=== PATIENT | female | born 1990 | race Caucasian/White ===

== ENCOUNTER 2019-11-11 12:36 | Outpatient (CLI) | payer BC, SELFPAY ==
--- NOTE | 2019-11-11 13:19 | ECHO_ITS ---
Patient Info Name: Taylor Mancilla Age: 29 years : 1990 Gender: Female Ht: 63 in Wt: 330 lbs BSA: 2.68 m2 HR: 71 bpm BP: 133 / 85 mmHg Heart Rhythm: Sinus Rhythm Technical Quality: Good Exam Date: 11/11/2019 1:32 PM Exam Location: [facility] Pulmonary Patient Status: Outpatient Admit Date: 11/11/2019 Staff Ordering Physician: Kerrie Fuentes NP Computer Aided Design Technician: Janina Terrazas RDCS Attending Provider: Kerrie Fuentes NP Referring Physician: Gina MACEDO; Exam Type: CA echo doppler color flow Study Info Complete two-dimensional, color flow and Doppler transthoracic echocardiogram is performed. Summary 1. Left ventricular chamber dimension is normal. 2. Left ventricular systolic function is normal, estimated at 60-65%. 3. The left ventricular diastolic function is normal. 4. E/e' 10 is mildly elevated. 5. There is trace mitral valve regurgitation. 6. There is trace tricuspid valve regurgitation. 7. No pulmonary hypertension, estimated pulmonary arterial systolic pressure is 28 mmHg. 8. There is trace pulmonic regurgitation. Left Ventricle E/e' 10 is mildly elevated. Left ventricular chamber dimension is normal. Left ventricular systolic function is normal, estimated at 60-65%. The left ventricular diastolic function is normal. Right Ventricle Right ventricular chamber dimension is normal. Right ventricular systolic function is normal. Left Atria Left atrial chamber dimension is normal. Right Atria Right atrial chamber dimension is normal. Aortic Valve The aortic valve is trileaflet. There is no aortic valve stenosis. There is no aortic valve regurgitation. Pulmonic Valve There is trace pulmonic regurgitation. Mitral Valve There is no mitral valve stenosis. There is trace mitral valve regurgitation. Tricuspid Valve There is trace tricuspid valve regurgitation. No pulmonary hypertension, estimated pulmonary arterial systolic pressure is 28 mmHg. Pericardium/Pleural There is no pericardial effusion. Inferior Vena Cava Normal inferior vena cava with >50% collapse upon inspiration consistent with normal right atrial pressure, 5 mmHg. Aorta The aortic root size at the sinus of Valsalva is normal. Left Ventricular Outflow Tract Name Value Normal LVOT 2D LVOT Diameter 2.1 cm LVOT Doppler LVOT Peak Gradient 4 mmHg LVOT Mean Gradient 2 mmHg LVOT VTI 23 cm LVOT VTI/AV VTI Ratio 0.8 LVOT Stroke Volume 75 ml LVOT CO 13.6 l/min LVOT CI 5.1 l/min/m2 Pulmonic Valve Name Value Normal PV Doppler PV Peak Gradient 5 mmHg Mitral Valve
== END 2019-11-11 12:37 | disposition home or self-care (01) ==
PROVIDERS: PCP Internal Medicine; Visit Provider Nurse Practitioner
DX: R60.9 Edema, unspecified (principal)
CPT/HCPCS: 93306

== ENCOUNTER 2021-02-15 11:59 | Outpatient (CLI) | payer BC, SELFPAY ==
[2021-02-15 12:55] LABS: Hematocrit 35.7 % (37.0-47.0); Hemoglobin 11.6 g/dL (12.0-15.0); Mean Corpuscular HGB Conc 32.5 g/dl (32-36); Mean Corpuscular Hemoglobin 30.4 pg (26-34); Mean Corpuscular Volume 93.5 fl (80-100); Mean Platelet Volume 10.7 fl (7.4-10.4); Platelet Count Result 359 k/mm3 (150-375); Red Blood Count 3.82 M/mm3 (4.2-5.4); Red Cell Distribution Width 13.3 % (11.5-14.5)
== END 2021-02-15 12:00 | disposition home or self-care (01) ==
LOC: ANHLAB 12:02
PROVIDERS: PCP Internal Medicine; Visit Provider Obstetrics & Gynecology
DX: N92.6 Irregular menstruation, unspecified (principal)
CPT/HCPCS: 36415; 84443; 85027

== ENCOUNTER 2021-06-29 09:43 | Outpatient (CLI) | payer BC, SELFPAY ==
[2021-06-29 10:07] LABS: Basophils Absolute Auto 0.1 K/mm3 (0.0-0.1); Basophils Percent Auto 0.7 % (0.2-1.2); Eosinophils Absolute Auto 0.3 K/mm3 (0-0.3); Eosinophils Percent Auto 2.5 % (0-4.4); Hematocrit 36.8 % (37.0-47.0); Hemoglobin 12.1 g/dL (12.0-15.0); Immature Granulocyte Absolute 0.04 K/mm3 (0.00-0.031); Immature Granulocyte Percent A 0.4 % (0-0.5); Lymphocytes Absolute Auto 3.26 K/mm3 (0.9-3.2); Lymphocytes Percent Auto 32.6 % (18.3-44.2); Mean Corpuscular HGB Conc 32.9 g/dl (32-36); Mean Corpuscular Volume 91.1 fl (80-100); Mean Platelet Volume 10.6 fl (7.4-10.4); Monocytes Absolute Auto 0.8 K/mm3 (0.1-0.6); Monocytes Percent Auto 7.5 % (2.6-8.5); Neutrophils Absolute Auto 5.6 K/mm3 (1.3-6.7); Neutrophils Percent Auto 56.3 % (45.5-73.1); Platelet Count Result 301 k/mm3 (150-375); Red Blood Count 4.04 M/mm3 (4.2-5.4); Red Cell Distribution Width 14.6 % (11.5-14.5)
--- NOTE | 2021-06-29 10:07 | ECG_ITS ---
Measurements Intervals [place] Rate: 74 P: 6 MN: 154 QRS: 55 QRSD: 87 T: 15 QT: 366 QTc: 408 Interpretive Statements SINUS RHYTHM NORMAL ECG Electronically Signed On 06-29-2021 11:57:09 PATROL LADY by Diego Fernandez D.O.
[2021-06-29 10:44] LABS: Alanine Aminotransferase 24 U/L (4-35); Albumin Level 4.2 g/dL (3.5-5.1); Alkaline Phosphatase 88 U/L (38-126); Anion Gap 5 mmol/L (8-16); Aspartate Amino Transferase 26 U/L (14-36); Bilirubin,Total 0.3 mg/dL (0.2-1.3); Blood Urea Nitrogen 14 mg/dL (7-17); Calcium 9.3 mg/dL (8.4-10.2); Carbon Dioxide 27 mmol/L (22-30); Chloride 106 mmol/L (98-107); Cholesterol 178 mg/dL (0-200); Estimated Glomerular Filt Rate > 60; Glucose 108 mg/dL (65-110); HDL Direct 40 mg/dL; Potassium 4.7 mmol/L (3.4-5.0); Sodium 138 mmol/L (137-145); Triglycerides 195 mg/dL (<150)
[2021-06-29 10:55] LABS: LDL Cholesterol Direct 115 mg/dL
== END 2021-06-29 09:44 | disposition home or self-care (01) ==
LOC: ANHLAB 09:46
PROVIDERS: PCP Internal Medicine; Visit Provider Nurse Practitioner
DX: I10 Essential (primary) hypertension (principal); Z01.810 Encounter for preprocedural cardiovascular examination
CPT/HCPCS: 36415; 80053; 80061; 85025; 93005

== ENCOUNTER → 2022-06-12 14:28 | Outpatient (CLI) | payer BC, SELFPAY ==
--- NOTE | ~2022-06-12 | XR_ITS ---
EXAMINATION: XR thoracic spine 3V DATE: 06/12/2022 14:42 INDICATION: Thoracic back pain TECHNIQUE: AP, lateral and lateral swimmer's views of the thoracic spine were obtained. COMPARISON: None. FINDINGS: No fracture, dislocation, or subluxation. The vertebral body heights, alignment, and interv ertebral disc spaces are normal. The paravertebral soft tissues are unremarkable. IMPRESSION: 1. No acute osseous abnormality. Reviewed, dictated and finalized at location L. PER MAKER
== END ==
PROVIDERS: PCP Nurse Practitioner; Visit Provider Nurse Practitioner
DX: M54.6 Pain in thoracic spine (principal)
CPT/HCPCS: 72072

== ENCOUNTER 2023-01-01 08:39 | Outpatient (CLI) | payer BC, SELFPAY ==
--- NOTE | 2023-01-02 11:03 | WPDNEUROLOGY ---
Neurology EEG Report General Information Date of Study: 01/01/23 TEST Routine EEG DIAGNOSIS Syncope and collapse CONDITION OF RECORDING Awake, drowsy EEG NUMBER [id number] CLINICAL HISTORY Patient states she has had three episodes of heart racing, sweating, dizziness, than losing consciousness for a few seconds. She has a history of gastric bypass and has lost 180 lbs in the past year. EEG DESCRIPTION During the awake state with eyes closed the background consists of 10 Hz posterior dominant rhythm which attenuates appropriately with eye opening. The recording is continuous. There is a well developed anterior-posterior gradient. No significant asymmetries of background activities are noted. With drowsiness there is waxing and waning of the dominant rhythm with eventual replacement by a mixture of beta, alpha, and theta activity. Patient does not enter stage II sleep. There are no epileptiform discharges or seizures during this recording. Photic stimulation did not elicit any abnormal photoparoxysmal response. IMPRESSION This is a normal routine EEG recorded in awake and drowsy states. There are no electrographic seizures identified, nor are there any epileptiform discharges. Please note that a normal EEG cannot exclude a seizure disorder. Clinical correlation is recommended.
--- NOTE | 2023-01-05 16:54 | WPDHOLTEREM ---
Holter/Event Monitor Holter/Event Monitor Date of procedure: 01/01/23 Holter/Event Procedure: 48 Hr Holter Monitor Indications: Syncope Conclusion: 1. 48 hour holter monitor on 01/01/23. 2. Underlying rhythm is sinus rhythm. HR range 50-143 bpm; average HR 78 bpm. HR at 143 bpm is at 16:52. 3. There are 2 premature supraventricular complexes. No supraventricular tachycardia. 4. There are 3,381 premature ventricular complexes and 35 ventricular trigeminy. No ventricular tachycardia. 5. No sinoatrial or atrioventricular blocks. No significant pauses greater than 2 seconds. 6. Patient reports symptoms of racing heart, pounding heart, dizziness which demonstrate sinus rhythm, HR range 72-101 bpm and 1 PVC.
== END 2023-01-01 08:40 | disposition home or self-care (01) ==
PROVIDERS: PCP Internal Medicine; Visit Provider Internal Medicine
DX: R55 Syncope and collapse (principal)
CPT/HCPCS: 93225; 93226; 95816

== ENCOUNTER 2023-02-05 12:34 | Outpatient (CLI) | payer BC, SELFPAY ==
--- NOTE | 2023-02-05 12:47 | ECHO_ITS ---
Patient Info Name: Taylor Mancilla Age: 32 years : 1990 Gender: Female Ht: 66 in Wt: 189 lbs BSA: 2.02 m2 HR: 61 bpm BP: 111 / 82 mmHg Technical Quality: Good Exam Date: 02/05/2023 1:02 PM Exam Location: [facility] Patient Status: Outpatient Admit Date: 02/05/2023 Staff Ordering Physician: Kerrie Fuentes NP Wave Guide Assembler: Nanette Logan RDCS Attending Provider: Kerrie Fuentes NP Referring Physician: Gina MACEDO; Exam Type: CA echo doppler color flow Study Info Indications R55 - Syncope and collapse Complete two-dimensional, color flow and Doppler transthoracic echocardiogram is performed. Summary 1. Complete two-dimensional, color flow and Doppler transthoracic echocardiogram is performed. 2. Left ventricular chamber dimension is normal. 3. Left ventricular systolic function is normal, estimated at 60-65%. 4. The left ventricular diastolic function is normal. 5. E/e' 6 is not elevated. 6. Global longitudinal strain is normal at -18.8%. 7. Left atrial chamber dimension is moderately enlarged. 8. Right atrial chamber dimension is moderately enlarged. 9. There is mild mitral valve regurgitation. 10. There is mild tricuspid valve regurgitation. 11. No pulmonary hypertension, estimated pulmonary arterial systolic pressure is 28 mmHg. Left Ventricle E/e' 6 is not elevated. Global longitudinal strain is normal at -18.8%. Left ventricular chamber dimension is normal. Left ventricular systolic function is normal, estimated at 60-65%. The left ventricular diastolic function is normal. Right Ventricle Right ventricular systolic function is normal and with normal TAPSE 3.0 cm. Right ventricular chamber dimension is normal. Left Atria Left atrial chamber dimension is moderately enlarged. Right Atria Right atrial chamber dimension is moderately enlarged. Aortic Valve The aortic valve is trileaflet. There is no aortic valve stenosis. There is no aortic valve regurgitation. Pulmonic Valve There is no pulmonic regurgitation. Mitral Valve There is no mitral valve stenosis. There is mild mitral valve regurgitation. Tricuspid Valve There is mild tricuspid valve regurgitation. No pulmonary hypertension, estimated pulmonary arterial systolic pressure is 28 mmHg. Pericardium/Pleural There is no pericardial effusion. Inferior Vena Cava Normal inferior vena cava with >50% collapse upon inspiration consistent with normal right atrial pressure, 5 mmHg. Aorta The aortic root size at the sinus of Valsalva is normal. Left Ventricular Outflow Tract Name Value Normal LVOT 2D LVOT Diameter 2.0 cm LVOT Doppler LVOT Peak Gradient 4 mmHg LVOT Mean Gradient 3 mmHg LVOT VTI 22 cm LVOT VTI/AV VTI Ratio 0.8 LVOT Stroke Volume 66 ml LVOT CO 3.8 l/min LVOT CI 1.9 l/min/m2 Pulmonic Valve Name Value Normal
== END 2023-02-05 12:35 | disposition home or self-care (01) ==
PROVIDERS: PCP Internal Medicine; Visit Provider Nurse Practitioner
DX: R55 Syncope and collapse (principal)
CPT/HCPCS: 93306

== ENCOUNTER 2023-03-24 08:08 | Outpatient (CLI) | payer BC, SELFPAY ==
--- NOTE | 2023-04-12 05:20 | WPDHOMESLEEP ---
Sleep Study - Home Unattended Date of Study: 03/24/23 Ordering Provider: Diego Fernandez DO Interpreting Provider: Cheyanne Velasquez MD [place] Sleep Study Type: Watch PAT Height: 1.65 m Weight: 90.718 kg Body Mass Index: 33.3 Neck Circumference (inches): 12.5 [place]: 17 Reason for Sleep Study Hypersomnolence Sleep History Taylor Mancilla is a 33-year-old woman with a long history of snoring and excessive daytime sleepiness. She takes multiple naps in the day. She never awakens from sleep short of breath. She rarely wakes at night with heartburn, belching or coughing.??She frequently snores,rarely snores loudly enough that others complain. She constantly has trouble sleeping when she has a cold. She never wakes up gasping for breath during the night. She never has breathing problems at night observed by others. She constantly sweats excessively at night. She rarely notices her heart pounding or beating irregularly during the night. She constantly falls asleep during the day. She constantly falls asleep involuntarily, and this constantly happens while she is driving. She does not experience loss of muscle tone with strong emotion. She never feels paralyzed on waking or falling asleep. She constantly experiences vivid dreams upon waking or falling asleep. She never feels afraid of going to sleep. She frequently has nightmares. She constantly recalls her dreams. She constantly has thoughts racing through her mind. She frequently feels sad or depressed. She frequently feels anxiety. She never notices parts of her body jerk. She never kicks during the night. She occasionally feels crawling or aching feelings in her legs. She occasionally feels leg pain at night. She never has morning jaw pain, never grinds her teeth at night. She never feels bothered by pain during the day, never is awakened by pain during the night. She occasionally wakes up feeling stiff in the morning, occasionally wakes feeling sore or achy in the morning. She never awakens with pain in her neck, spine, or joints. Normal bedtime is between 10:00 p.m and 11:00 p.m., falling asleep within hours of going to bed. She wakes up 3-4 times during the night. While awake at night, she goes to the bathroom, gets a snack, watches TV or looks at her phone. She reports getting 5 restless hours of sleep per night. Her wake time is 6:00 a.m.On weekends, she goes to bed later, between midnight and 1:00 a.m., and wakes at noon or later. She [facility] naps [facility] or evenings, however a short nap is not refreshing. Habits:??Tobacco:quit Mar 2018. Caffeine:2-3 servings per day. Alcohol:none Recreational substances: yes, type is not specified [facility] Past Medical History Medical History Anxiety Asthma Broken finger Chronic headaches Depression Hypertension Migraines Seasonal allergies Surgical History Surgical History History of tonsillectomy Family History Family History Mother Hypertension Asthma Depression Kidney disease Grandparent Hypertension Diabetes mellitus Asthma Depression Sibling Asthma Depression Social History Social History Social History: Caffeine- coffee Smoking status: Former smoker Tobacco type: cigarettes Smoking end date: 03/01/18 Alcohol intake: current Alcohol use details: occasionally Substance use: never Lack of Transportation: No Lack of Food: Never True Current Housing: I Have Housing Concerned About Future Housing: No Difficulty Paying Gas/Electric Bills: No Difficulty Paying for Meds: No Currently Unemployed: No Education: Associate Degree Difficulty w/ Childcare or Family Care: No Medications Home Medications Medication Instructions Recorded Confirmed Type marlin
[2023-04-13 10:46] VITALS: BMI 33.3
== END 2023-03-25 11:21 | disposition home or self-care (01) ==
PROVIDERS: PCP Internal Medicine; Visit Provider Internal Medicine Cardiovascular Disease
DX: G47.10 Hypersomnia, unspecified (principal)
CPT/HCPCS: 95800

== ENCOUNTER 2023-12-04 16:17 | Outpatient (CLI) | payer OTHER, SELFPAY ==
--- NOTE | ~2023-12-04 | XR_ITS ---
EXAMINATION: XR lumbar spine min 4V DATE: 12/04/2023 16:37 INDICATION: Right-sided low back pain. TECHNIQUE: 5 views of lumbar spine were obtained. COMPARISON: None. FINDINGS: Bone alignment is normal. Vertebral body heights and intervertebral disc heights are normal . The facet joints are normal. IMPRESSION: 1. Normal lumbar spine. Reviewed, dictated and finalized at location A. IMPRESSION: 1. Normal lumbar spine.
== END 2023-12-04 16:18 | disposition home or self-care (01) ==
LOC: ANHIMG 16:20
PROVIDERS: PCP Internal Medicine; Visit Provider Nurse Practitioner
DX: M54.50 Low back pain, unspecified (principal)
CPT/HCPCS: 72110

== ENCOUNTER 2024-06-13 06:38 | Outpatient (CLI) | payer OTHER, SELFPAY ==
--- NOTE | ~2024-06-13 | MR_ITS ---
MRI of the brain Clinical History: Dizziness and giddiness Technique: Axial and sagittal T1-weighted images were acquired. These were followed by axial T2-weigh asya, diffusion weighted, gradient, and FLAIR images. Following intravenous administration of 12 cc Mu ltiHance gadolinium, T1-weighted fat-sat imaging was performed in the axial and coronal planes. Findings: No abnormal signal seen in the brain parenchyma. No acute infarct, intracranial hemorrhage, or mass lesion. Ventricles and subarachnoid spaces are unremarkable. Orbits are unremarkable. Paranasal sinuses and m astoid air cells are clear. Major flow voids are intact. Sagittal midline structures are intact. No abnormal postcontrast enhancement identified. IMPRESSION: Normal exam. Reviewed, dictated and finalized at location . ERY SUPERVISOR IMPRESSION: Normal exam.
== END 2024-06-13 06:39 | disposition home or self-care (01) ==
PROVIDERS: PCP Internal Medicine; Visit Provider Nurse Practitioner
DX: R42 Dizziness and giddiness (principal); R55 Syncope and collapse; R51.9 Headache, unspecified
CPT/HCPCS: 70553; A9577